=== PATIENT | female | born 1955 | race Caucasian/White ===

== ENCOUNTER → 2017-06-04 | Outpatient (CLI) | payer OTHER ==
--- NOTE | 2017-06-04 11:44 | DIAGNOSTIC IMAGING REPORT ---
SOFT TISS HEAD/NECK-THYROID CLINICAL HISTORY: 61 years-old Female presenting with MULTIPLE THYROID NODULES. TECHNIQUE: Real-time grayscale and color Doppler ultrasound imaging of the thyroid and base of the neck was performed. COMPARISON: None. FINDINGS: Right lobe: Normal echogenicity and echotexture. The right lobe of the thyroid measures 4.6 x 1.5 x 1.6 cm. Peripherally calcified nodule at the lower pole measuring 3 x 4 x 3 mm (intermediate suspicion). No parenchymal hyperemia. Left lobe: Normal echogenicity and echotexture. The left lobe of the thyroid measures 4.1 x 1.2 x 1.1 cm. Well-defined wider than tall hypoechoic nodule anteriorly at the upper pole measuring 4 x 2 x 5 mm (intermediate suspicion). No parenchymal hyperemia. Isthmus: The isthmus measures 2 mm in thickness. No nodules. IMPRESSION: 2 small nodules in the otherwise normal-appearing thyroid. No fine-needle aspiration indication at this time per the [place] [employer] criteria. Electronically signed by: Zana Quiñonez M.D. 06/04/2017 11:43 AM Dictated Date/Time: 06/04/2017 11:40 AM
== END | disposition home or self-care (01) ==
LOC: C.ULTR 10:56
PROVIDERS: ATTEND Internal Medicine Endocrinology, Diabetes & Metabolism
DX: E04.2 Nontoxic multinodular goiter (principal)